=== PATIENT | male | born 1950 | race African-American/Black ===

== ENCOUNTER 2017-04-20 12:30 | Emergency (ER) | payer BC ==
[~2017-04-20] VITALS: Ht 172.7 cm; Wt 80.0 kg
[~2017-04-20 12:30] MED LIST: ASPIRIN81 MG PO; CIPRO500 MG PO; DIOVAN160 MG PO; FISH OIL1400 MG OR; GARLIC OIL1000 M1 OR; METOPROL TAR100 MG OR; TAMSULOSIN0.4 MG PO; TORADOL OR; ZOCOR20 MG OR
[2017-04-20 13:14] LABS: URINE BILIRUBIN - DIPSTICK NEGATIVE (NEGATIVE); URINE BLOOD DIPSTICK LARGE (NEGATIVE); URINE GLUCOSE - DIPSTICK NEGATIVE (NEGATIVE); URINE KETONE TRACE mg/dL (NEGATIVE); URINE LEUK ESTERASE TRACE (NEGATIVE); URINE NITRITE - DIPSTICK NEGATIVE (Negative); URINE PROTEIN - DIPSTICK 100 mg/dL (NEG-TRACE); URINE SPECIFIC GRAVITY 1.025
[2017-04-20 13:20] LABS: URINE CLARITY CLOUDY; URINE COLOR AMBER; URINE RBC TNTC RBC/hpf (0-5); URINE SQUAMOUS EPITHELIAL CELL FEW EPI/hpf (0-FEW)
[2017-04-20 13:57] LABS: HEMATOCRIT 39.8 % (39.0-50.0); IMMATURE GRANULOCYTES 0.4 % (0.0-1.0); MEAN CELL VOLUME 84.3 fL CALC (80.0-100.0); MEAN CORPUSCULAR HGB 27.5 pG CALC (26.0-32.0); MEAN CORPUSCULAR HGB CONC 32.7 g/L CALC (32.0-36.0); NEUT# 2.79 thou/uL (1.82-7.42); RED BLOOD COUNT 4.72 mill/uL (4.70-6.10); RED CELL DISTRI WIDTH 12.5 % (11.5-15.5)
[2017-04-20 14:01] LABS: ALBUMIN 3.9 g/dL (3.2-5.0); ALKALINE PHOSPHATASE 72 u/l (38-126); ANION GAP 15 (6-22 (CALC)); BILIRUBIN, TOTAL 0.7 mg/dL (0.0-1.4); BUN 13 mg/dL (8-23); BUN/CREATININE RATIO 11 (12-20 (CALC)); CALCIUM 9.2 mg/dL (8.4-10.2); CARBON DIOXIDE 25 mmol/l (22-30); CHLORIDE 105 mmol/l (95-108); CREATININE 1.2 mg/dL (0.7-1.3); GFR 60 ML/MIN (>=60 (CALC)); GFR FOR AFR.AMER. > 60 ML/MIN (>=60 (CALC)); GLUCOSE 96 mg/dL (82-115); POTASSIUM 3.6 mmol/l (3.5-5.1); SGOT/AST 38 u/l (19-48); SGPT/ALT 49 u/l (11-66); SODIUM 141 mmol/l (137-146); TOTAL PROTEIN 6.6 g/dL (6.3-8.2)
[2017-04-20] MEDS ORDERED: AMLODIPINE5 MG PO (15:35)
[2017-04-20] MEDS ORDERED: LORATADINE10 M1 PO (15:37)
[2017-04-20] MEDS ORDERED: BYSTOLIC5 MG PO (15:37)
[2017-04-20] MEDS ORDERED: CIPROFLOXACN500 MG PO (16:29)
[2017-04-20] MEDS ORDERED: PYRIDIUM200 MG PO (16:29)
[2017-04-20 16:38] VITALS: BP 165/86
== END 2017-04-20 16:38 | disposition home or self-care (01) | DRG 696 ==
LOC: ED 12:30
PROVIDERS: Emergency Medicine
DX: R31.9 Hematuria, unspecified (principal); I10 Essential (primary) hypertension; N40.1 Benign prostatic hyperplasia with lower urinary tract symptoms; R30.0 Dysuria; N40.0 Benign prostatic hyperplasia without lower urinary tract symptoms; R60.0 Localized edema; R10.31 Right lower quadrant pain; X50.3XXA Overexertion from repetitive movements, initial encounter; Y93.89 Activity, other specified; Y92.89 Other specified places as the place of occurrence of the external cause

== ENCOUNTER 2018-01-16 10:59 | Observation (INO) | payer BC, MEDICARE ==
[~2018-01-16] VITALS: Ht 172.7 cm; Wt 93.5 kg
[~2018-01-16 10:59] MED LIST changes: +AMLODIPINE5 MG PO; +BYSTOLIC5 MG PO; +CIPROFLOXACN500 MG PO; +LORATADINE10 M1 PO; +PYRIDIUM200 MG PO
[2018-01-16 11:25] LABS: HEMATOCRIT 41.1 % (39.0-50.0); HEMOGLOBIN 13.4 g/dl (14.0-18.0); IMMATURE GRANULOCYTES 0.5 % (0.0-1.0); MEAN CELL VOLUME 83.9 fL CALC (80.0-100.0); MEAN CORPUSCULAR HGB 27.3 pG CALC (26.0-32.0); MEAN CORPUSCULAR HGB CONC 32.6 g/L CALC (32.0-36.0); NEUT# 2.21 thou/uL (1.82-7.42); RED BLOOD COUNT 4.9 mill/uL (4.70-6.10); RED CELL DISTRI WIDTH 12.7 % (11.5-15.5)
[2018-01-16] MEDS ORDERED: ALLERGY RE50 MCG/ACT NAB (11:35)
[2018-01-16 11:38] LABS: ALBUMIN 4.2 g/dL (3.2-5.0); ALKALINE PHOSPHATASE 88 u/l (38-126); ANION GAP 16 (6-22 (CALC)); BILIRUBIN, TOTAL 0.5 mg/dL (0.0-1.4); BUN 16 mg/dL (8-23); BUN/CREATININE RATIO 13 (12-20 (CALC)); CARBON DIOXIDE 21 mmol/l (22-30); CHLORIDE 110 mmol/l (95-108); CREATININE 1.2 mg/dL (0.7-1.3); GFR 60 ML/MIN (>=60 (CALC)); GFR FOR AFR.AMER. > 60 ML/MIN (>=60 (CALC)); LIPASE 47 u/l (23-300); POTASSIUM 3.4 mmol/l (3.5-5.1); SGOT/AST 47 u/l (19-48); SGPT/ALT 52 u/l (11-66); SODIUM 144 mmol/l (137-146); TOTAL PROTEIN 7.4 g/dL (6.3-8.2)
[2018-01-16 11:50] LABS: MYOGLOBIN 119 ng/mL (0 - 121)
[2018-01-16 12:10] LABS: URINE BILIRUBIN - DIPSTICK NEGATIVE (NEGATIVE); URINE BLOOD DIPSTICK LARGE (NEGATIVE); URINE GLUCOSE - DIPSTICK NEGATIVE (NEGATIVE); URINE KETONE TRACE mg/dL (NEGATIVE); URINE LEUK ESTERASE NEGATIVE (NEGATIVE); URINE NITRITE - DIPSTICK NEGATIVE (Negative); URINE PROTEIN - DIPSTICK 100 mg/dL (NEG-TRACE)
[2018-01-16 12:15] LABS: URINE CLARITY HAZY; URINE COLOR DK. YELLOW
[2018-01-16 12:17] LABS: URINE EPITHELIAL CELLS FEW EPI/hpf (0-FEW); URINE RBC 25-50 RBC/hpf (0-5)
[2018-01-16 13:00] VITALS: BP 123/69
[2018-01-16 15:14] VITALS: BP 127/74
[2018-01-16 19:34] VITALS: BP 148/86
[2018-01-17 00:06] VITALS: BP 121/67
[2018-01-17 04:48] VITALS: BP 132/72
[2018-01-17 06:26] LABS: ANION GAP 13 (6-22 (CALC)); BUN 14 mg/dL (8-23); BUN/CREATININE RATIO 11 (12-20 (CALC)); CALCULATED LDLCHOLESTEROL 68 mg/dL (62-129 (CALC)); CARBON DIOXIDE 24 mmol/l (22-30); CHLORIDE 106 mmol/l (95-108); CHOLESTEROL HDL RATIO 2.9 (<4.4 (CALC)); CREATININE 1.2 mg/dL (0.7-1.3); GFR 60 ML/MIN (>=60 (CALC)); GFR FOR AFR.AMER. > 60 ML/MIN (>=60 (CALC)); HDL CHOLESTEROL 46 mg/dL (>=40); MAGNESIUM 1.9 mg/dL (1.6-2.3); POTASSIUM 3.7 mmol/l (3.5-5.1); SODIUM 139 mmol/l (137-146); TOTAL CHOLESTEROL 134 mg/dl (0-199); TOTAL TRIGLYCERIDES 97 mg/dl (30-149); VLDL CHOLESTROL 19 mg/dl (4-45 (CALC))
[2018-01-17 07:51] VITALS: BP 141/86
[2018-01-17] MEDS ORDERED: NITROSTAT0.4 MG SL (09:54)
[2018-01-17 11:08] VITALS: BP 138/93
== END 2018-01-17 13:12 | disposition home or self-care (01) | DRG 311 ==
LOC: ED 10:59 → ED-I 11:48 → ED 12:07 → MS2 12:08
PROVIDERS: ADMIT Internal Medicine; ATTEND Internal Medicine
DX: I20.9 Angina pectoris, unspecified (principal); I10 Essential (primary) hypertension; E78.5 Hyperlipidemia, unspecified; R31.9 Hematuria, unspecified; Z85.46 Personal history of malignant neoplasm of prostate; Z92.3 Personal history of irradiation
CPT/HCPCS: G0378